=== PATIENT | male | born 1975 | race Caucasian/White ===

== ENCOUNTER 2017-10-22 08:36 | Emergency (ER) | payer OTHER ==
[2017-10-22 08:46] VITALS: BP 139/87
[2017-10-22] MEDS ORDERED: DEXAMETHASONE 10 MG/ML VIAL PO STA (08:47)
--- NOTE | 2017-10-22 08:50 | ED Physician Documentation ---
History of Present Illness - Stated complaint Stated Complaint: BEE STING/FOREARM SWELLING - Chief complaint Chief Complaint: General - History obtained from History obtained from: Patient - History of Present Illness Timing: How many days ago (3) - Additonal information Additional information: 42-year-old male was at his home 3 days ago when he flipped over a board with a hornet's nest and sprayed the area. 1 of the hornets stung him in the left forearm. He has had localized swelling and redness that has progressed day by day. He has some tenseness to the skin some itching and a feeling of fullness. He does not feel ill otherwise he is not having any wheezing or lightheadedness. He has not had a fever. Review of Systems Constitutional: denies: Fever, Chills, Myalgias, Fatigue Eyes: denies: Decreased vision Ears: denies: Ear pain Nose: denies: Rhinorrhea / runny nose, Congestion Throat: denies: Sore throat Cardiac: denies: Chest pain / pressure Respiratory: denies: Cough GI: denies: Vomiting, Constipation, Diarrhea : denies: Dysuria Skin: reports: Bite / sting Musculoskeletal: reports: Extremity pain, Extremity swelling. denies: Neck pain , Back pain Neurologic: denies: Generalized weakness, Focal weakness, Numbness PD PAST MEDICAL HISTORY - Past Medical History Cardiovascular: High cholesterol Respiratory: Sleep apnea, CPAP use GI: Other HEENT: Chronic vision loss, Chronic hearing loss Psych: Post traumatic stress disorder Musculoskeletal: Other - Past Surgical History Past Surgical History: Yes - Present Medications Home Medications: Ambulatory Orders Medication Instructions Recorded Confirmed Amox/Clav 875/125 [Augmentin] 1 each PO Q12H #14 tablet 10/22/17 Loratadine/Pseudoephedrine 10/22/17 [Claritin-D 24 Hour Tablet] - Allergies Allergies/Adverse Reactions: Allergies Allergy/AdvReac Type Severity Reaction Status Date / Time No Known Drug Allergies Allergy Verified 10/22/17 08:46 - Social History Does the pt smoke?: No Smoking Status: Never smoker Does the pt drink ETOH?: Yes Does the pt have substance abuse?: No - Immunizations Immunizations are current?: Yes - POLST Patient has POLST: No PD ED PE NORMAL - Vitals Vital signs reviewed: Yes (tachy and hypertensive ) - General General: Alert and oriented X 3, No acute distress, Well developed/nourished - HEENT HEENT: Atraumatic, PERRL, EOMI - Respiratory Respiratory: No respiratory distress - Derm Derm: Normal color, Warm and dry - Extremities Extremities: Other (There is swelling and blanching erythema to the left forearm dorsal surface. The swelling is from the wrist to the brachioradialis ) - Neuro Neuro: Alert and oriented X 3, No motor deficit, No sensory deficit, Normal speech Eye Opening: Spontaneous Motor: Obeys Commands Verbal: Oriented GCS Score: 15 - Psych Psych: Normal mood, Normal affect Results - Vitals Vitals: Vital Signs - 24 hr 10/22/17 08:42 Temperature 36.4 C L Heart Rate 103 H Respiratory 101 H Rate Blood Pressure 139/87 H O2 Saturation 97 Oxygen O2 Source Room air PD MEDICAL DECISION MAKING - ED course Complexity details: considered differential, d/w patient ED course: 42-year-old male with what appears to be a localized reaction to a bee sting appears now to have bee sting cellulitis as well. He is administered dexamethasone 10 mg orally and we will place him on some antibiotic. - Sepsis Event Vital Signs: Vital Signs - 24 hr 10/22/17 08:42 Temperature 36.4 C L Heart Rate 103 H Respiratory 101 H Rate Blood Pressure 139/87 H O2 Saturation 97 Oxygen O2 Source Room air Departure - Departure Disposition: 01 Home, Self Care Clinical Impression: Insect bite, infected Qualifiers: Encounter type: initial encounter Qualified Code(s): W57.XXXA - Bitten or stung by nonvenomous insect and other nonvenomous arthropods, initial encounter Condition: Stable Instructions: ED Sting Bite Insect Infec Follow-Up: Your, doctor [Other] Prescriptions: Amox/Clav 875/125 [Augmentin] 1 each PO Q12H #14 tablet
[2017-10-22] MEDS ORDERED: CHERRY SYRUP 10 ML UDC PO ONE (08:51)
== END 2017-10-22 09:06 | disposition home or self-care (01) ==
LOC: ED 08:36
DX: T63.441A Toxic effect of venom of bees, accidental (unintentional), initial encounter (principal); E78.00 Pure hypercholesterolemia, unspecified
CPT/HCPCS: 99283; A9270

== ENCOUNTER 2018-05-27 12:40 | Emergency (ER) | payer OTHER ==
[2018-05-27 12:58] VITALS: BP 132/92
== END 2018-05-27 13:59 | disposition left against medical advice (07) ==
LOC: ED 12:40
DX: Z53.21 Procedure and treatment not carried out due to patient leaving prior to being seen by health care provider (principal)

== ENCOUNTER 2020-10-16 17:47 | Emergency (ER) | payer OTHER ==
[2020-10-16 17:58] VITALS: BP 133/98
[2020-10-16] MEDS ORDERED: LIDOCAINE-EPINEPH-TETRACAINE 3 ML SYRINGE TOP STA (18:12)
[2020-10-16] MEDS ORDERED: ACETAMINOPHEN 325 MG TABLET PO STA (18:12)
--- NOTE | 2020-10-16 18:47 | ED Physician Documentation ---
History of Present Illness - Stated complaint Stated Complaint: HEAD LAC - Chief complaint Chief Complaint: Laceration - History obtained from History obtained from: Patient - History of Present Illness Timing: Today Pain level max: 5 Pain level now: 3 - Additonal information Additional information: 45-year-old male with a scalp laceration while placing T posts into the ground. Tetanus up-to-date. Bleeding controlled. No loss of consciousness. No neck or back pain. No nausea or vomiting. nothing makes it better or worse. no neck or back pain. no paresthesias. Review of Systems Constitutional: denies: Fever GI: denies: Vomiting Skin: denies: Rash Musculoskeletal: denies: Neck pain, Back pain Neurologic: denies: Focal weakness, Numbness, LOC PD PAST MEDICAL HISTORY - Past Medical History Past Medical History: Yes Cardiovascular: Hypertension, High cholesterol Respiratory: Sleep apnea, CPAP use GI: Other HEENT: Chronic vision loss, Chronic hearing loss Psych: Post traumatic stress disorder Musculoskeletal: Other - Past Surgical History Past Surgical History: Yes - Allergies Allergies/Adverse Reactions: Allergies Allergy/AdvReac Type Severity Reaction Status Date / Time No Known Drug Allergies Allergy Verified 10/16/20 17:58 - Social History Does the pt smoke?: No Smoking Status: Never smoker Does the pt drink ETOH?: Yes Does the pt have substance abuse?: No - Immunizations Immunizations are current?: Yes - POLST Patient has POLST: No PD ED PE NORMAL - Vitals Vital signs reviewed: Yes - General General: Alert and oriented X 3, No acute distress - HEENT HEENT: PERRL, EOMI, Moist mucous membranes, Other (2 cm scalp laceration, anterior scalp. No active bleeding. No hematoma. 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, No motor deficit, No sensory deficit, Normal speech Eye Opening: Spontaneous Motor: Obeys Commands Verbal: Oriented GCS Score: 15 Results - Vitals Vitals: Vital Signs - 24 hr 10/16/20 17:55 Temperature 36.8 C Heart Rate 96 Respiratory 18 Rate Blood Pressure 133/98 H O2 Saturation 100 Oxygen O2 Source Room air Procedures - Laceration (location) scalp Length in cm: 2 Wound type: Linear, Into subcut fat Neurovascular status: Sensory intact Anesthesia: LET Wound preparation: Irrigated copiously NS, Wound explored, To the base Skin layer closure: Deion (3) Other: Patient tolerated well, No complications, Neurovascular intact, Tetanus UTD PD MEDICAL DECISION MAKING - ED course Complexity details: considered differential, d/w patient ED course: Laceration repaired with deion. No indication for imaging. Head injury instructions given at bedside. Warnings of infection and instructions on wound care given at bedside. Also counseled on how to minimize scarring. Patient counseled regarding signs and symptoms for which I believe and urgent re- evaluation would be necessary. Patient with good understanding of and agreement to plan and is comfortable going home at this time This document was made in part using voice recognition software. While efforts are made to proofread this document, sound alike and grammatical errors may occur. Departure - Departure Disposition: 01 Home, Self Care Clinical Impression: Scalp laceration Qualifiers: Encounter type: initial encounter Qualified Code(s): S01.01XA - Laceration without foreign body of scalp, initial encounter Condition: Good Instructions: ED Laceration Scalp Stitch Or Stap Follow-Up: your,doctor in 7-10 days for staple removal [Other] Comments: Follow-up with your doctor in 7 to 10 days for staple removal. Return if you worsen. Keep the wound clean. You can use Motrin or Tylenol as needed for pain. Forms: Activity restrictions Discharge Date/Time: 10/16/20 18:51
== END 2020-10-16 18:51 | disposition home or self-care (01) ==
LOC: ED 17:47
DX: S01.01XA Laceration without foreign body of scalp, initial encounter (principal); W20.8XXA Other cause of strike by thrown, projected or falling object, initial encounter; Y93.H3 Activity, building and construction
CPT/HCPCS: 12001; 99282; A9270